=== PATIENT | female | born 1980 | race Caucasian/White ===

== ENCOUNTER → 2024-04-26 06:24 | Day surgery (SDC) | payer OTHER, SELFPAY | LOC: GI 06:24 | PROVIDERS: ATTENDING PHYSICIAN Surgery | DX: K62.5 Hemorrhage of anus and rectum (principal); D12.4 Benign neoplasm of descending colon; K63.5 Polyp of colon; K64.9 Unspecified hemorrhoids | CPT/HCPCS: 45380; 88305 ==